=== PATIENT | male | born 1985 | race Hispanic/Latino ===

== ENCOUNTER 2017-08-03 07:46 | Emergency (ER) | payer OTHER ==
[2017-08-03] MEDS ORDERED: Ketorolac Tromethamine 30 MG/ML VIAL ONE (08:10)
[2017-08-03] MEDS ORDERED: Dexamethasone 4 mg/ml Vial ONE (08:10)
--- NOTE | 2017-08-03 09:07 | RAD ---
NECK SOFT TISSUES 2 VIEWS: HISTORY: Throat pain. Dyspnea. FINDINGS: The epiglottis has a normal appearance. No radiopaque foreign bodies are apparent. Upper airway ap pears patent. IMPRESSION: No significant abnormalities are demonstrated. POS: [facility]
== END 2017-08-03 09:19 | disposition home or self-care (01) ==
LOC: ERS 07:46
DX: K12.2 Cellulitis and abscess of mouth (principal); F17.210 Nicotine dependence, cigarettes, uncomplicated
CPT/HCPCS: 70360; 87081; 87430; 96374; 96375; J1100; J1885

== ENCOUNTER 2017-12-10 09:08 | Emergency (ER) | payer OTHER, SELFPAY ==
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
[2017-12-10] MEDS ORDERED: Ketorolac Tromethamine 30 MG/ML VIAL ONE (10:38)
== END 2017-12-10 11:12 | disposition home or self-care (01) ==
LOC: ERS 09:08
DX: S29.012A Strain of muscle and tendon of back wall of thorax, initial encounter (principal); S46.912A Strain of unspecified muscle, fascia and tendon at shoulder and upper arm level, left arm, initial encounter; F17.210 Nicotine dependence, cigarettes, uncomplicated; V89.2XXA Person injured in unspecified motor-vehicle accident, traffic, initial encounter
CPT/HCPCS: 71046; 96372; J1885

== ENCOUNTER 2018-09-07 20:52 | Emergency (ER) | payer SELFPAY ==
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
[2018-09-07] MEDS ORDERED: Ketorolac Tromethamine 30 MG/ML VIAL ONE (21:32)
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
== END 2018-09-07 22:50 | disposition home or self-care (01) ==
LOC: ERS 20:52
DX: S20.211A Contusion of right front wall of thorax, initial encounter (principal); F17.210 Nicotine dependence, cigarettes, uncomplicated; V87.8XXA Person injured in other specified noncollision transport accidents involving motor vehicle (traffic), initial encounter
CPT/HCPCS: 71045; 71250; 96374; G0390; J1885

== ENCOUNTER 2018-11-02 10:25 | Emergency (ER) | payer SELFPAY ==
[2018-11-02] MEDS ORDERED: diphenhydrAMINE 50 MG CAP ONE (10:41)
== END 2018-11-02 12:32 | disposition home or self-care (01) ==
LOC: ERS 10:25
DX: T78.1XXA Other adverse food reactions, not elsewhere classified, initial encounter (principal); F17.210 Nicotine dependence, cigarettes, uncomplicated
CPT/HCPCS: 99283

== ENCOUNTER 2020-01-28 20:52 | Emergency (ER) | payer SELFPAY | END 2020-01-28 21:20 | disposition home or self-care (01) | LOC: ERS 20:52 | DX: R05 Cough (principal); F17.210 Nicotine dependence, cigarettes, uncomplicated | CPT/HCPCS: 99281 ==

== ENCOUNTER 2020-07-09 15:04 | Emergency (ER) | payer BC, OTHER ==
[2020-07-10 12:43] LABS: SARS-CoV-2 MS2 Positive; SARS-CoV-2 N Gene Negative; SARS-CoV-2 S Gene Negative; SARS-CoV-2 by NAA Not Detected (NotDetected); SARS-CoV-2 orf1ab Negative
== END 2020-07-09 15:40 | disposition home or self-care (01) ==
LOC: ERS 15:04
DX: R50.9 Fever, unspecified (principal); R52 Pain, unspecified; Z20.828 Contact with and (suspected) exposure to other viral communicable diseases; F17.210 Nicotine dependence, cigarettes, uncomplicated
CPT/HCPCS: 87635; 99283; U0003

== ENCOUNTER 2020-11-01 10:19 | Emergency (ER) | payer BC ==
--- NOTE | 2020-11-01 11:03 | RAD ---
XR Chest 1 View Portable HISTORY: Dyspnea, day 7 of COVID illness COMPARISON: 09/07/2018 FINDINGS: The heart size is normal. Mild patchy multifocal opacities are seen. No pneumothoraces, lob ar consolidation or pleural effusions are identified. IMPRESSION: Findings suspicious for COVID 19 pneumonia.
[2020-11-01] MEDS ORDERED: Dexamethasone 10 MG/ML VIAL ONE (11:14)
[2020-11-01] MEDS ORDERED: Ibuprofen 800 MG TAB ONE (11:14)
[2020-11-01] MEDS ORDERED: Albuterol 200 PUFF (6.7GM INHALER) ONE (11:15)
== END 2020-11-01 12:00 | disposition home or self-care (01) ==
LOC: ERS 10:19
DX: U07.1 COVID-19 (principal); J12.82 Pneumonia due to coronavirus disease 2019; F17.210 Nicotine dependence, cigarettes, uncomplicated
CPT/HCPCS: 71045; 93005; J1100

== ENCOUNTER 2020-11-05 08:14 | Inpatient (IN) | payer BC ==
--- NOTE | 2020-11-05 09:03 | RAD ---
Exam: Chest one view HISTORY:Difficulty breathing x1 day. COVID pneumonia. Comparison: 11/01/2020 FINDINGS: Cardiac silhouette: Normal Aorta: Unremarkable Pulmonary vessels: Normal Costophrenic angles: Clear LUNGS: Scattered interstitial and alveolar opacities which have slightly progressed when compared to the previous examination. Pneumothorax: None Osseous abnormalities: None IMPRESSION: Progression of COVID pneumonia, multi lobar
[2020-11-05] MEDS ORDERED: Azithromycin 500 MG VIAL ONE (09:12)
[2020-11-05] MEDS ORDERED: Dexamethasone 10 MG/ML VIAL ONE (09:12)
[2020-11-05] MEDS ORDERED: cefTRIAXone\\ROCEPHIN 2 GM VIAL ONE (09:12)
[2020-11-05] MEDS ORDERED: Aspirin Chewable 81 MG TAB ONE (09:12)
[2020-11-05] MEDS ORDERED: Enoxaparin Sodium 60 MG/0.6 ML SYRINGE ONE (09:15)
[2020-11-05] MEDS ORDERED: Enoxaparin Sodium 100 MG/ML SYRINGE ONE ×2 (09:15→09:16)
[2020-11-05 09:25] LABS: #Lymphocytes 1.8 thou/uL (1.20-3.40); #Monocytes 0.4 thou/uL (0.11-0.59); #Neutrophils 4.2 thou/uL (1.40-6.50); %Basophils 0.7 % (0.0-1.0); %Eosinophils 0.2 % (0.0-10.0); %Lymphocytes 27.7 % (21.0-51.0); %Monocytes 6.1 % (0.0-10.0); %Neutrophils 65.3 % (42.0-75.0); Hemoglobin 13.2 g/dL (14.0-18.0); Mean Corpuscular Volume 82.4 fL (78.0-98.0); Mean Platelet Volume 6.9 fL (7.4-10.4); Platelet Count 221 thou/uL (130-400); RBC Distribution Width 12.3 % (11.5-14.5); Red Blood Cell (RBC) Count 4.73 mill/uL (4.70-6.10); White Blood Cell (WBC) Count 6.4 thou/uL (4.8-10.8)
[2020-11-05 09:50] LABS: ALT (SGPT) 40 U/L (8-55); AST (SGOT) 44 U/L (5-34); Albumin 3.7 g/dL (3.5-5.0); Alkaline Phosphatase 69 U/L (40-110); Anion Gap 15 mmol/L (10-20); BUN (Urea Nitrogen) 24 mg/dL (8.9-20.6); Bilirubin, Total 0.6 mg/dL (0.2-1.2); CK (CPK) 921 U/L (30-200); Calc. Creatinine Clearance 0 mL/min (70-130); Calcium 8.4 mg/dL (7.8-10.44); Carbon Dioxide 22 mmol/L (22-29); Chloride 105 mmol/L (98-107); Globulin 3.2 g/dL (2.4-3.5); Glucose 94 mg/dL (70-105); Lipase 26 U/L (8-78); Potassium 3.9 mmol/L (3.5-5.1); Protein, Total 6.9 g/dL (6.0-8.3); Sodium 138 mmol/L (136-145)
[2020-11-05] MEDS ORDERED: Ondansetron ODT 4 MG TAB PO PRN (10:04)
--- NOTE | 2020-11-05 11:17 | PDOC.HHP ---
Hospitalist HPI - History of Present Illness Shortness of breath History of Present Illness: 34-year-old male diagnosed with Covid in early part of October went to [facility] and stayed there for 2 days. he is discharged with 4 L oxygen. He did not feel better- any exertion, is sats dropped to mid 80s. Here in the ER his sats are improved slightly to 92% with 5 L oxygen. Routine medications including Lovenox given in the ER for Covid pneumonia. Patient will be admitted for further management. his chest x-ray progression of Covid pneumonia and multilobar. Patient has no comorbidities. Hospitalist ROS - Review of Systems All other systems reviewed; all pertinent +/- noted in HPI/Subj - Medication Medications: She is not on any home medications. Hospitalist History - Family History Other Family History: Patient has no significant family history other than diabetes runs in the family. - Social History Other Social History: Smokes and drinks occasionally during the weekends. - Exam General Appearance: NAD, awake alert Eye: PERRL, anicteric sclera ENT: normocephalic atraumatic Neck: supple, no lymphadenopathy Heart: RRR, normal peripheral pulses Respiratory: CTAB, normal chest expansion Gastrointestinal: soft, normal bowel sounds Neurological: normal sensation to touch, no focal deficits, no new deficit Psychiatric: normal affect, normal behavior, A&O x 3 Hospitalist Results - Labs Result Diagrams: 11/05/20 08:50 11/05/20 08:50 Lab results: WBC 6.4 thou/uL (4.8-10.8) 11/05/20 08:50 Hgb 13.2 g/dL (14.0-18.0) L 11/05/20 08:50 Hct 39.0 % (42.0-52.0) L 11/05/20 08:50 MCV 82.4 fL (78.0-98.0) 11/05/20 08:50 Plt Count 221 thou/uL (130-400) 11/05/20 08:50 Neutrophils % 65.3 % (42.0-75.0) 11/05/20 08:50 Sodium 138 mmol/L (136-145) 11/05/20 08:50 Potassium 3.9 mmol/L (3.5-5.1) 11/05/20 08:50 Chloride 105 mmol/L (98-107) 11/05/20 08:50 Carbon Dioxide 22 mmol/L (22-29) 11/05/20 08:50 BUN 24 mg/dL (8.9-20.6) H 11/05/20 08:50 Creatinine 0.90 mg/dL (0.7-1.3) 11/05/20 08:50 Glucose 94 mg/dL (70-105) 11/05/20 08:50 Lactic Acid 1.2 mmol/L (0.5-2.2) 11/05/20 09:06 Calcium 8.4 mg/dL (7.8-10.44) 11/05/20 08:50 Total Bilirubin 0.6 mg/dL (0.2-1.2) 11/05/20 08:50 AST 44 U/L (5-34) H 11/05/20 08:50 ALT 40 U/L (8-55) 11/05/20 08:50 Alkaline Phosphatase 69 U/L (40-110) 11/05/20 08:50 Creatine Kinase 921 U/L (30-200) H 11/05/20 08:50 Troponin I Less than 0.010 ng/mL (< 0.028) 11/05/20 08:50 B-Natriuretic Peptide Less than 10.0 pg/mL (0-100) 11/05/20 08:50 Serum Total Protein 6.9 g/dL (6.0-8.3) 11/05/20 08:50 Albumin 3.7 g/dL (3.5-5.0) 11/05/20 08:50 Lipase 26 U/L (8-78) 11/05/20 08:50 Hospitalist H&P A/P - Plan Plan: COVID-19 positive test (U07.1, COVID-19) with Acute Pneumonia (J12.89, Other viral pneumonia) (If respiratory failure or sepsis present, add as separate assessment) Hypoxia secondary to Covid pneumonia Acute respiratory failure --His symptoms started 5 days previously. -Patient did not receive any remdesivir at [facility] -We will start him on Decadron and request the pharmacy for remdesivir. Will also put him on vitamins as well as zinc. -His liver function test as well as creatinine normal range. -Place him on Lovenox twice daily for DVT prophylaxis. Patient is not a diabetic or take any other medications. Regular diet. Full code.
[2020-11-05] MEDS ORDERED: REMDESIVIR (EUA) 200 MG in Sodium Chloride 0.9% 250 ML 210 ML IV SCH (12:00)
[2020-11-05 12:56] VITALS: BMI 48.5
[2020-11-05] MEDS: Enoxaparin Sodium 40 MG/0.4 ML SYRINGE SC SCH (20:05)
[2020-11-05] MEDS: Famotidine 20 MG TAB PO SCH (20:06)
[2020-11-05] MEDS: Acetaminophen 325 MG TAB PO PRN (20:06)
[2020-11-06] MEDS ORDERED: Dexamethasone 4 MG TAB PO SCH (08:00)
[2020-11-06] MEDS ORDERED: Iopamidol-370 76% 500 ML 1 ML ONE (08:36)
[2020-11-06] MEDS ORDERED: Albuterol Sulfate 2.5 mg/3 ml Neb NEB PRN (09:26)
[2020-11-06] MEDS ORDERED: Benzonatate 100 MG CAP PO PRN (09:26)
[2020-11-06] MEDS ORDERED: Sodium Chloride 0.65% Nasal 44 ML BOT EA NARE PRN (09:26)
[2020-11-06] MEDS ORDERED: Dexamethasone 4 mg/ml Vial SLOW IVP SCH (09:30)
--- NOTE | 2020-11-06 09:31 | PDOC.HOSPP ---
- Subjective Encounter Date: 11/06/20 Encounter Time: 09:30 Subjective: Patient states he was concerned because his oxygen level dropped overnight while he was sleeping. States he checked with his own pulse ox and it was 85%. He elevated the head of the bed. This morning he had central chest discomfort, unable to rate or describe it. States he is very afraid because a friend of his of COVID recently. He denies having any chest pain at present, no respiratory symptoms. Has a cough productive for clear/yellow phlegm. No hemoptysis. Denies any n/v. Tolerating PO intake. Denies any urinary symptoms or bowel changes. All other review of systems are negative. - Objective Vital Signs & Weight: Vital Signs (12 hours) Temp Pulse Resp BP Pulse Ox 11/06/20 05:26 98.4 F 61 18 132/76 97 11/06/20 00:45 98.3 F 59 L 16 115/72 98 Weight Weight 347 lb 14.231 oz Result Diagrams: 11/05/20 08:50 11/05/20 08:50 Hospitalist ROS - Medication Medications: Active Medications Generic Name Dose Route Start Last Admin Trade Name Freq PRN Reason Stop Dose Admin Acetaminophen 650 mg 11/05/20 10:04 11/05/20 20:06 Acetaminophen 325 Mg Tab PO 650 mg Q4H PRN Administration Headache/Fever/Mild Pain (1-3) Enoxaparin Sodium 40 mg 11/05/20 21:00 11/05/20 20:05 Enoxaparin Sodium 40 Mg/0.4 Ml Syringe SC 40 mg 0900,2100 ALCIDES Administration Famotidine 20 mg 11/05/20 21:00 11/05/20 20:06 Famotidine 20 Mg Tab PO 20 mg BID ALCIDES Administration - Exam General Appearance: NAD, awake alert General - other findings: Sats 96% on 3L by NC Eye: PERRL, anicteric sclera ENT: normocephalic atraumatic, no oropharyngeal lesions Neck: supple, no lymphadenopathy Heart: RRR, no murmur, no gallops, no rubs, normal peripheral pulses Respiratory: CTAB, no wheezes, no rales, no ronchi, normal chest expansion Gastrointestinal: soft, non-tender, non-distended, normal bowel sounds Extremities: no edema Skin: normal turgor, no lesions, no rashes Neurological: cranial nerve grossly intact, normal sensation to touch, no weakness Musculoskeletal: normal tone, normal strength, no muscle wasting, generalized weakness Psychiatric: normal affect, normal behavior, A&O x 3 Hosp A/P (1) Pneumonia due to COVID-19 virus Code(s): U07.1 - COVID-19; J12.82 - PNEUMONIA DUE TO CORONAVIRUS DISEASE 2018 Status: Acute (2) Elevated d-dimer Code(s): R79.89 - OTHER SPECIFIED ABNORMAL FINDINGS OF BLOOD CHEMISTRY Status: Acute (3) Obesity Code(s): E66.9 - OBESITY, UNSPECIFIED Status: Chronic - Plan Monitor O2 sats Continue remdesivir, vitamin C and Zinc PO steroids switched to IV Albuteral inhaler ordered prn Maria Del Carmenon lizz ordered prn for cough CTA ordered due to complaint of CP, SOB and elevated d-dimer Repeat labs for today Monitor inflammatory markers GI prophylaxis with Famotidine DVT Prophylaxis with Enoxaparin CODE STATUS FULL
[2020-11-06] MEDS: Zinc Sulfate 220 MG CAP PO SCH (09:34)
[2020-11-06] MEDS: Ascorbic Acid 500 mg Chewable Tablet PO SCH (09:34)
[2020-11-06] MEDS: Cholecalciferol (Vitamin D3) 400 UNITS TAB PO SCH (09:34)
[2020-11-06] MEDS: Acetaminophen 325 MG TAB PO PRN (09:39)
[2020-11-06] MEDS ORDERED: REMDESIVIR (EUA) 200 MG in Sodium Chloride 0.9% 250 ML 210 ML IV SCH (10:00)
[2020-11-06 10:16] LABS: #Lymphocytes 2.2 thou/uL (1.20-3.40); #Monocytes 0.4 thou/uL (0.11-0.59); #Neutrophils 5.8 thou/uL (1.40-6.50); %Basophils 0.3 % (0.0-1.0); %Eosinophils 0.3 % (0.0-10.0); %Lymphocytes 25.8 % (21.0-51.0); %Monocytes 4.7 % (0.0-10.0); %Neutrophils 68.8 % (42.0-75.0); Mean Corpuscular HGB CONC 33.5 g/dL (32.0-36.0); Mean Corpuscular Hemoglobin 27.9 pg (27.0-31.0); Mean Corpuscular Volume 83.4 fL (78.0-98.0); Mean Platelet Volume 6.7 fL (7.4-10.4); Platelet Count 256 thou/uL (130-400); RBC Distribution Width 12.2 % (11.5-14.5); Red Blood Cell (RBC) Count 5.03 mill/uL (4.70-6.10); White Blood Cell (WBC) Count 8.4 thou/uL (4.8-10.8)
[2020-11-06 10:37] LABS: ALT (SGPT) 49 U/L (8-55); AST (SGOT) 39 U/L (5-34); Albumin 3.9 g/dL (3.5-5.0); Alkaline Phosphatase 72 U/L (40-110); Anion Gap 14 mmol/L (10-20); BUN (Urea Nitrogen) 22 mg/dL (8.9-20.6); Bilirubin, Total 0.5 mg/dL (0.2-1.2); CK (CPK) 609 U/L (30-200); CRP (Inflammatory) 3.79 mg/dL (= or < 0.5); Calc. Creatinine Clearance 223 mL/min (70-130); Calcium 8.8 mg/dL (7.8-10.44); Carbon Dioxide 27 mmol/L (22-29); Chloride 102 mmol/L (98-107); Globulin 3.3 g/dL (2.4-3.5); Glucose 115 mg/dL (70-105); Magnesium 2.5 mg/dL (1.6-2.6); Protein, Total 7.2 g/dL (6.0-8.3); Sodium 139 mmol/L (136-145)
--- NOTE | 2020-11-06 11:37 | CT ---
CTA CHEST WITH CONTRAST: Date: 11/06/2020 Axial tomograms obtained following angio protocol with multiplanar reconstruction and 3D postprocessi ng. INDICATION: Elevated D-Dimer with chest pain, shortness of breath, and COVID pneumonia. FINDINGS: Pulmonary arteries show adequate enhancement. No evidence of pulmonary embolus identified. The lung crum show diffuse bilateral ground-glass infiltrates consistent with diffuse bilateral COV ID pneumonia. Nonspecific mediastinal and hilar adenopathy. Thoracic aorta is unremarkable with no evidence of dissection. Images through upper abdomen unremarkable. Osseous structures unremarkable. IMPRESSION: 1. No evidence of pulmonary embolus. 2. Diffuse bilateral ground-glass infiltrates consistent with COVID pneumonia. POS: [facility]
[2020-11-06] MEDS ORDERED: REMDESIVIR (EUA) 100 MG in Sodium Chloride 0.9% 250 ML 230 ML IV SCH (12:00)
[2020-11-06] MEDS: Famotidine 20 MG TAB PO SCH ×2 (12:04→21:09)
[2020-11-06] MEDS: Enoxaparin Sodium 40 MG/0.4 ML SYRINGE SC SCH ×2 (12:05→21:08)
[2020-11-07 06:29] LABS: #Basophils 0.1 thou/uL (0.0-0.2); #Eosinphils 0.1 thou/uL (0.0-0.7); #Monocytes 0.4 thou/uL (0.11-0.59); #Neutrophils 4.4 thou/uL (1.40-6.50); %Basophils 1.1 % (0.0-1.0); %Eosinophils 0.9 % (0.0-10.0); %Lymphocytes 28.6 % (21.0-51.0); %Monocytes 5.7 % (0.0-10.0); %Neutrophils 63.7 % (42.0-75.0); Hemoglobin 13.8 g/dL (14.0-18.0); Mean Corpuscular HGB CONC 34.2 g/dL (32.0-36.0); Mean Corpuscular Volume 81.8 fL (78.0-98.0); Mean Platelet Volume 6.8 fL (7.4-10.4); Platelet Count 244 thou/uL (130-400); RBC Distribution Width 12.2 % (11.5-14.5); Red Blood Cell (RBC) Count 4.94 mill/uL (4.70-6.10)
[2020-11-07 06:52] LABS: Anion Gap 14 mmol/L (10-20); BUN (Urea Nitrogen) 20 mg/dL (8.9-20.6); CRP (Inflammatory) 2.53 mg/dL (= or < 0.5); Calc. Creatinine Clearance 232 mL/min (70-130); Calcium 8.5 mg/dL (7.8-10.44); Carbon Dioxide 27 mmol/L (22-29); Chloride 102 mmol/L (98-107); Glucose 82 mg/dL (70-105); Magnesium 2.3 mg/dL (1.6-2.6); Sodium 139 mmol/L (136-145)
[2020-11-07 06:53] LABS: Lactic Acid 0.8 mmol/L (0.5-2.2)
[2020-11-07] MEDS: Enoxaparin Sodium 40 MG/0.4 ML SYRINGE SC SCH ×2 (08:16→21:23)
[2020-11-07] MEDS: Zinc Sulfate 220 MG CAP PO SCH (08:17)
[2020-11-07] MEDS: Dexamethasone 4 mg/ml Vial SLOW IVP SCH (08:17)
[2020-11-07] MEDS: Ascorbic Acid 500 mg Chewable Tablet PO SCH (08:17)
[2020-11-07] MEDS: Famotidine 20 MG TAB PO SCH ×2 (08:18→21:23)
[2020-11-07] MEDS: Cholecalciferol (Vitamin D3) 400 UNITS TAB PO SCH (08:18)
[2020-11-07] MEDS: REMDESIVIR (EUA) 100 MG in Sodium Chloride 0.9% 250 ML 230 ML IV SCH (08:19)
--- NOTE | 2020-11-07 08:22 | PDOC.HOSPP ---
- Subjective Encounter Date: 11/07/20 Encounter Time: 11:30 Subjective: Patient feeling much better. Was able to take off his oxygen earlier this morning and is sating well at rest currently. Got a little winded with ambulating to bathroom but only down to 90% and went back up with resting and ta didier deep breaths. - Objective Vital Signs & Weight: Vital Signs (12 hours) Temp Pulse Resp BP Pulse Ox 11/07/20 04:44 97.8 F 82 20 123/83 96 11/07/20 00:30 97.2 F L 72 18 163/82 H 93 L 11/06/20 21:34 97.8 F 68 18 113/74 95 Weight Weight 347 lb 14.231 oz Result Diagrams: 11/07/20 06:04 11/07/20 06:04 Hospitalist ROS - Review of Systems Constitutional: denies: fever, chills Respiratory: reports: SOB with excertion. denies: cough, shortness of breath Cardiovascular: denies: chest pain, palpitations Gastrointestinal: denies: nausea, vomiting, abdominal pain - Medication Medications: Active Medications Generic Name Dose Route Start Last Admin Trade Name Freq PRN Reason Stop Dose Admin Acetaminophen 650 mg 11/05/20 10:04 11/06/20 09:39 Acetaminophen 325 Mg Tab PO 650 mg Q4H PRN Administration Headache/Fever/Mild Pain (1-3) Ascorbic Acid 1,000 mg 11/06/20 09:00 11/07/20 08:17 Ascorbic Acid 500 Mg Chewable Tablet PO 1,000 mg DAILY ALCIDES Administration Cholecalciferol 400 units 11/06/20 09:00 11/07/20 08:18 Cholecalciferol (Vitamin D3) 400 Units Tab PO 400 units DAILY ALCIDES Administration Dexamethasone 6 mg 11/07/20 09:00 11/07/20 08:17 Dexamethasone 4 Mg/Ml Vial SLOW IVP 6 mg DAILY ALCIDES Administration Enoxaparin Sodium 40 mg 11/05/20 21:00 11/07/20 08:16 Enoxaparin Sodium 40 Mg/0.4 Ml Syringe SC 40 mg 0900,2100 ALCIDES Administration Famotidine 20 mg 11/05/20 21:00 11/07/20 08:18 Famotidine 20 Mg Tab PO 20 mg BID ALCIDES Administration Sodium Chloride 10 ml 11/06/20 21:00 11/06/20 21:10 Flush - Normal Saline 10 Ml Syringe IVF 10 ml Q12HR ALCIDES Administration Zinc Sulfate 220 mg 11/06/20 09:00 11/07/20 08:17 Zinc Sulfate 220 Mg Cap PO 220 mg DAILY ALCIDES Administration - Exam General Appearance: NAD, awake alert ENT: moist mucosa Heart: RRR, no murmur, no gallops, no rubs Respiratory: CTAB, no wheezes, no rales, no ronchi Gastrointestinal: soft, non-tender, non-distended, normal bowel sounds Psychiatric: normal affect, normal behavior, A&O x 3 Hosp A/P (1) Pneumonia due to COVID-19 virus Code(s): U07.1 - COVID-19; J12.82 - PNEUMONIA DUE TO CORONAVIRUS DISEASE 2019 Status: Acute (2) Acute respiratory failure with hypoxia Code(s): J96.01 - ACUTE RESPIRATORY FAILURE WITH HYPOXIA Status: Acute (3) Obesity Code(s): E66.9 - OBESITY, UNSPECIFIED Status: Chronic - Plan Monitor O2 sats, was requiring 3-4L NC, but now on room air Continue remdesivir, vitamin C, vitamin D, and Zinc PO steroids switched to IV Albuteral inhaler ordered prn Tesramonon lizz ordered prn for cough CTA ordered due to complaint of CP, SOB and elevated d-dimer- showing only Covid-19 PNA, no PE Monitor inflammatory markers GI prophylaxis with Famotidine DVT Prophylaxis with Enoxaparin CODE STATUS FULL If stays off O2 tonight can likely d/c home tomorrow.
[2020-11-07] MEDS ORDERED: Temazepam 15 MG CAP PO PRN (14:41)
[2020-11-08 06:28] LABS: #Eosinphils 0.1 thou/uL (0.0-0.7); #Lymphocytes 2.3 thou/uL (1.20-3.40); #Monocytes 0.3 thou/uL (0.11-0.59); #Neutrophils 5.1 thou/uL (1.40-6.50); %Basophils 0.1 % (0.0-1.0); %Eosinophils 1.3 % (0.0-10.0); %Lymphocytes 29.4 % (21.0-51.0); %Monocytes 3.3 % (0.0-10.0); %Neutrophils 65.9 % (42.0-75.0); Hemoglobin 13.8 g/dL (14.0-18.0); Mean Corpuscular HGB CONC 32.3 g/dL (32.0-36.0); Mean Corpuscular Hemoglobin 26.5 pg (27.0-31.0); Mean Corpuscular Volume 82.2 fL (78.0-98.0); Mean Platelet Volume 6.9 fL (7.4-10.4); Platelet Count 264 thou/uL (130-400); RBC Distribution Width 12.3 % (11.5-14.5); White Blood Cell (WBC) Count 7.7 thou/uL (4.8-10.8)
--- NOTE | 2020-11-08 07:23 | PDOC.HOSPP ---
- Subjective Encounter Date: 11/08/20 Encounter Time: 10:30 Subjective: Patient feeling much better. Ambulating without O2. Some cough but improved. SOB with exertion only. Eager to go home. - Objective Vital Signs & Weight: Vital Signs (12 hours) Temp Pulse Resp BP Pulse Ox 11/07/20 20:00 98.1 F 81 20 128/81 94 L Weight Weight 347 lb 14.231 oz I&O: 11/07/20 11/08/20 11/09/20 06:59 06:59 06:59 Intake Total 610 Balance 610 Result Diagrams: 11/08/20 05:38 11/07/20 06:04 Hospitalist ROS - Review of Systems Constitutional: denies: fever, chills Respiratory: reports: cough, SOB with excertion. denies: shortness of breath Cardiovascular: denies: chest pain, palpitations Gastrointestinal: denies: nausea, vomiting, abdominal pain - Medication Medications: Active Medications Generic Name Dose Route Start Last Admin Trade Name Freq PRN Reason Stop Dose Admin Acetaminophen 650 mg 11/05/20 10:04 11/06/20 09:39 Acetaminophen 325 Mg Tab PO 650 mg Q4H PRN Administration Headache/Fever/Mild Pain (1-3) Ascorbic Acid 1,000 mg 11/06/20 09:00 11/07/20 08:17 Ascorbic Acid 500 Mg Chewable Tablet PO 1,000 mg DAILY ALCIDES Administration Cholecalciferol 400 units 11/06/20 09:00 11/07/20 08:18 Cholecalciferol (Vitamin D3) 400 Units Tab PO 400 units DAILY ALCIDES Administration Dexamethasone 6 mg 11/07/20 09:00 11/07/20 08:17 Dexamethasone 4 Mg/Ml Vial SLOW IVP 6 mg DAILY ALCIDES Administration Enoxaparin Sodium 40 mg 11/05/20 21:00 11/07/20 21:23 Enoxaparin Sodium 40 Mg/0.4 Ml Syringe SC 40 mg 0900,2100 ALCIDES Administration Famotidine 20 mg 11/05/20 21:00 11/07/20 21:23 Famotidine 20 Mg Tab PO 20 mg BID ALCIDES Administration Remdesivir 100 mg/ Sodium 250 mls @ 250 mls/hr 11/07/20 10:00 11/07/20 08:19 Chloride IV 11/10/20 10:59 250 mls 1000 ALCIDES Administration Sodium Chloride 10 ml 11/06/20 21:00 11/07/20 21:24 Flush - Normal Saline 10 Ml Syringe IVF 10 ml Q12HR ALCIDES Administration Temazepam 15 mg 11/07/20 14:41 11/07/20 21:24 Temazepam 15 Mg Cap PO 15 mg HSPRN PRN Administration Insomnia Zinc Sulfate 220 mg 11/06/20 09:00 11/07/20 08:17 Zinc Sulfate 220 Mg Cap PO 220 mg DAILY ALCIDES Administration - Exam General Appearance: NAD, awake alert ENT: moist mucosa Heart: RRR, no murmur, no gallops, no rubs Respiratory: CTAB, no wheezes, no rales, no ronchi Gastrointestinal: soft, non-tender, non-distended, normal bowel sounds Extremities: no edema Psychiatric: normal affect, normal behavior, A&O x 3 Hosp A/P (1) Pneumonia due to COVID-19 virus Code(s): U07.1 - COVID-19; J12.82 - PNEUMONIA DUE TO CORONAVIRUS DISEASE 2019 Status: Acute (2) Acute respiratory failure with hypoxia Code(s): J96.01 - ACUTE RESPIRATORY FAILURE WITH HYPOXIA Status: Acute (3) Obesity Code(s): E66.9 - OBESITY, UNSPECIFIED Status: Chronic - Plan Monitor O2 sats, was requiring 3-4L NC, but now on room air for 24 hours Continue remdesivir, vitamin C, vitamin D, and Zinc PO steroids switched to IV, can switch back to oral Albuteral inhaler ordered prn Tessalon lizz ordered prn for cough CTA ordered due to complaint of CP, SOB and elevated d-dimer- showing only Covid-19 PNA, no PE Monitor inflammatory markers GI prophylaxis with Famotidine DVT Prophylaxis with Enoxaparin CODE STATUS FULL Can d/c home today due to marked improvement.
[2020-11-08 07:35] VITALS: BP 101/57; TEMP 98
[2020-11-08] MEDS: Cholecalciferol (Vitamin D3) 400 UNITS TAB PO SCH (08:53)
[2020-11-08] MEDS: Enoxaparin Sodium 40 MG/0.4 ML SYRINGE SC SCH (08:53)
[2020-11-08] MEDS: Famotidine 20 MG TAB PO SCH (08:53)
[2020-11-08] MEDS: Zinc Sulfate 220 MG CAP PO SCH (08:54)
[2020-11-08] MEDS: Dexamethasone 4 mg/ml Vial SLOW IVP SCH (08:54)
[2020-11-08] MEDS: REMDESIVIR (EUA) 100 MG in Sodium Chloride 0.9% 250 ML 230 ML IV SCH (10:37)
[2020-11-08] MEDS: Ascorbic Acid 500 mg Chewable Tablet PO SCH (10:50)
--- NOTE | 2020-11-08 13:48 | DIS ---
DATE OF ADMISSION: 11/05/2020 DATE OF DISCHARGE: 11/08/2020 PRIMARY CARE PHYSICIAN: Shankar Barajas. REASON FOR ADMISSION: Hypoxic respiratory failure from COVID. DISCHARGE DIAGNOSES: 1. COVID-19 pneumonia. 2. Acute respiratory failure with hypoxia, resolved. 3. Obesity. PROCEDURES: CT angio of the chest with contrast showing no pulmonary embolism, but diffuse bilateral ground-glass infiltrates consistent with COVID pneumonia. CONSULTATIONS: None. SUMMARY OF HOSPITAL COURSE: This is a 34-year-old male with only medical history of obesity. He was diagnosed with COVID early in October. He was admitted to [facility] and stayed there for 2 days. He was discharged with, I believe, some home oxygen. His saturations were dropping to the mid 80s on oxygen with exertion, so he came presented to our emergency room. His saturations improved to 92% on 5 L of oxygen, so he was admitted to the hospital. He was given dexamethasone and started on remdesivir. The patient did have elevated D-dimer and with the severe worsening of symptoms, he had a CT angio to make sure he had no pulmonary emboli. He was treated here with continued improvement in his symptoms. He was able to be weaned off oxygen completely and was ambulating well without de-satting even during ambulation. He was feeling much better and is being discharged home. DISCHARGE MANAGEMENT: Discharged home. FOLLOWUP: With primary care physician in the next 1 to 2 weeks. ACTIVITY: As tolerated. DIET: Regular diet. DISCHARGE MEDICATIONS: Dexamethasone 6 mg daily for 2 more days, two tablets dispensed. Job ID: [id number]
== END 2020-11-08 12:30 | disposition home or self-care (01) | DRG 177 ==
LOC: ERS 08:14 → T4-A 09:57
PROVIDERS: ADMIT Internal Medicine; ATTEND Emergency Medicine
PROC: 8E0ZXY6 Isolation (ICD-10-PCS; principal; 2020-11-05)
PROC: XW033E5 Introduction of Remdesivir Anti-infective into Peripheral Vein, Percutaneous Approach, New Technology Group 5 (ICD-10-PCS; 2020-11-05)
DX: U07.1 COVID-19 (principal); J12.82 Pneumonia due to coronavirus disease 2019; J96.01 Acute respiratory failure with hypoxia; Z68.42 Body mass index [BMI] 45.0-49.9, adult; F17.210 Nicotine dependence, cigarettes, uncomplicated; E66.9 Obesity, unspecified; Z79.899 Other long term (current) drug therapy
CPT/HCPCS: 36415; 71045; 71275; 80048; 80053; 82550; 83605; 83690; 83735; 83880; 84484; 85025; 85379; 86140; 87040; 87804; 93005; 96365; 96372; 96375; J0456; J0696; J1100; J1650; J7050; Q9967

== ENCOUNTER 2021-04-30 12:03 | Emergency (ER) | payer BC | END 2021-04-30 13:40 | disposition home or self-care (01) | LOC: ERS 12:03 | DX: M25.532 Pain in left wrist (principal); Z87.891 Personal history of nicotine dependence ==

== ENCOUNTER 2021-10-15 17:05 | Emergency (ER) | payer BC ==
[2021-10-15] MEDS ORDERED: Ketorolac Tromethamine 30 MG/ML VIAL ONE (18:36)
== END 2021-10-15 19:16 | disposition home or self-care (01) ==
LOC: ERS 17:05
DX: J45.909 Unspecified asthma, uncomplicated (principal); Z87.891 Personal history of nicotine dependence
CPT/HCPCS: 71045; 93005; 96372; J1885

== ENCOUNTER 2022-09-10 20:40 | Emergency (ER) | payer SELFPAY ==
[2022-09-10] MEDS ORDERED: Ketorolac Tromethamine 30 MG/ML VIAL ONE (21:50)
== END 2022-09-10 22:12 | disposition home or self-care (01) ==
LOC: ERS 20:40
DX: S63.501A Unspecified sprain of right wrist, initial encounter (principal); W11.XXXA Fall on and from ladder, initial encounter
CPT/HCPCS: 29125; 96372; J1885

== ENCOUNTER 2024-08-02 19:26 | Emergency (ER) | payer BC, SELFPAY ==
[2024-08-02] MEDS ORDERED: Dexamethasone 10 MG/ML VIAL ONE (20:14)
[2024-08-02] MEDS ORDERED: Ibuprofen 800 MG TAB ONE (20:31)
== END 2024-08-02 20:51 | disposition home or self-care (01) ==
LOC: ERS 19:26
DX: J18.9 Pneumonia, unspecified organism (principal)
CPT/HCPCS: 71045; 87081; 87428; 87430; J1100